=== PATIENT | female | born 1985 | race Caucasian/White ===

== ENCOUNTER 2017-01-29 09:57 | Emergency (ER) | payer MEDICAID, SELFPAY ==
[~2017-01-29] VITALS: Ht 175.3 cm; Wt 61.2 kg
[~2017-01-29 09:57] MED LIST: FAMCICLOVIR500 MG ORAL; NORCO1 E1 ORAL; ZOFRAN ODT8 MG ORAL; gabapentin
[2017-01-29] MEDS ORDERED: NKM (10:22)
[2017-01-29 10:46] LABS: APPEARANCE,URINE SLIGHTLY CLOUDY; KETONES,URINE NEGATIVE (NEGATIVE); LEUKOCYTE ESTERASE ,URINE 1+ (NEGATIVE); NITRITE,URINE NEGATIVE (NEGATIVE); PH,URINE 6.5 (4.5-8.0); PROTEIN,URINE NEGATIVE (NEGATIVE); UROBILINOGEN,URINE NORMAL MG/DL (0.0-1.0)
[2017-01-29 10:53] LABS: BACTERIA,URINE FEW /HPF; SQUAMOUS EPITHELIAL CELL,UR MODERATE /LPF (NONE/OCC)
--- NOTE | 2017-01-29 10:58 | Emergency Room Report ---
History of Present Illness General Chief Complaint: Abdominal Pain Source: Patient Present Illness HPI 31YOF walk-in with acute epigastric "burning" pain "radiating up my throat". No nausea/vomiting, diarrhea. States D&C was done 3 weeks ago. States "uterus was punctured." Was DCed with 3 day course of Abx, doesnt remember name. Denies urinary complaints, fever/chills. Remote past surgical history of ovarian cyst removal. History of gastritis "but this feels differently." No history of gallstones. Allergies: Coded Allergies: No Known Allergies (Unverified , 01/29/17) Patient History Past Medical History: none Past Surgical History: other - ovarian cyst surgery?, D&C Pertinent Family History: none Last Menstrual Period: 10/01/16 ( 3 weeks ago) Now: No Immunizations: UTD Reviewed Nursing Documentation: PMH: Agreed, PSxH: Agreed Nursing Documentation-PMH Past Medical History: No Stated History Review of Systems All Other Systems: negative except mentioned in HPI Physical Exam Vital Signs Date Time Temp Pulse Resp B/P Pulse Ox O2 Delivery O2 Flow Rate FiO2 01/29/17 10:17 98.4 93 18 141/91 98 Room Air Sp02 EP Interpretation: reviewed, normal General Appearance: normal inspection, well appearing, no apparent distress, alert, GCS 15, non-toxic Head: normocephalic, atraumatic ENT: normal ENT inspection, hearing grossly normal, normal voice Neck: normal inspection, full range of motion, supple, no bony tend Respiratory: normal inspection, lungs clear, normal breath sounds, no rhonchi, no respiratory distress, no retraction, no accessory muscle use, no wheezing, speaking full sentences Cardiovascular #1: regular rate, rhythm, no edema Gastrointestinal: normal inspection, normal bowel sounds, soft, no guarding, no hernia, other - ++TTP RUQ and epigastrium. Midline vertical umbilical scar Genitourinary: no CVA tenderness Musculoskeletal: normal inspection, back normal, normal range of motion, Mitch' s Sign negative Neurologic: normal inspection, alert, oriented x3, responsive, proctologist III-XII nml as tested, motor strength/tone normal, speech normal Psychiatric: normal inspection, judgement/insight normal, mood/affect normal Skin: normal inspection, normal color, no rash Lymphatic: normal inspection Medical Decision Making Diagnostic Impression: Primary Impression: Gastritis Qualified Codes: K29.50 - Unspecified chronic gastritis without bleeding Additional Impression: Pyelonephritis ER Course Right sided abd/flank pain - UA c/w UTI. Possibly Keflex resistant UTI post D&C - Clinical pyelo - Afebrile, no leuks on labs - No LFT abnormality to be c/w cholecystitis. Lipase normal - IV Rocephin given in ED - Rx Macrobid Epigastric pain - Likely chronic gastritis - No NSAID abuse or ETOH abuse - Improved with IV Pepcid - Rx pepcid Chest X-Ray Diagnostic Results EP Interpretation: Yes Findings: no consolidation, no effusion, no pneumothorax, no acute cardiopulmonary disease, other - no free air Number of Views: 1 Last Vital Signs Date Time Temp Pulse Resp B/P Pulse Ox O2 Delivery O2 Flow Rate FiO2 01/29/17 10:17 98.4 93 18 141/91 98 Room Air Status: improved Disposition: HOME, SELF-CARE Scripts Famotidine (PEPCID) 20 Mg Tablet 20 MG ORAL BID for 7 Days, #14 TAB 0 Refills Prov: JORGE FUENTES M.D. 01/29/17 Nitrofurantoin Monohyd/M-Cryst* (MACROBID 100 MG*) 100 Mg Capsule 100 MG ORAL EVERY 12 HOURS for 7 Days, #14 CAP Prov: JORGE FUENTES M.D. 01/29/17 JORGE FUENTES M.D. Jan 29, 2017 10:58
[2017-01-29] MEDS ORDERED: Famotidine 20 MG/ 2ML VIAL IVP ONE (11:00)
[2017-01-29] MEDS ORDERED: Lidocaine 2% Visc 15ml soln ORAL ONE (11:00)
[2017-01-29] MEDS ORDERED: Mylanta II UD 30ml ORAL ONE (11:00)
[2017-01-29] MEDS ORDERED: cefTRIAXone 1 GM in NS 55 ML IVPB ONE (11:30)
[2017-01-29 11:52] LABS: BASOPHILS % (AUTO) 0.6 % (0.0-2.0); EOSINOPHILS % (AUTO) 2.2 % (0.0-3.0); LYMPHOCYTES % (AUTO) 9.7 % (20.0-45.0); MEAN CORPUSCULAR HEMOGLOBIN 30.8 PG (27.0-31.0); MEAN CORPUSCULAR HGB CONC 33.9 G/DL (32.0-36.0); MEAN CORPUSCULAR VOLUME 91 FL (80-99); MEAN PLATELET VOLUME 6.9 FL (6.5-10.1); MONOCYTES % (AUTO) 6.9 % (1.0-10.0); NEUTROPHILS % (AUTO) 80.6 % (45.0-75.0); PLATELET COUNT 262 K/UL (150-450); RED BLOOD COUNT 4.07 M/UL (4.20-5.40); RED CELL DISTRIBUTION WIDTH 11.2 % (11.6-14.8); WHITE BLOOD COUNT 9.4 K/UL (4.8-10.8)
[2017-01-29 11:57] LABS: ALANINE AMINOTRANSFERASE 7 U/L (3-33); ALBUMIN/GLOBULIN RATIO 1.8 (1.0-2.7); ANION GAP 17 (5-15); ASPARTATE AMINO TRANSFERASE 11 U/L (5-40); CALCIUM 9.9 mg/dL (8.6-10.2); CARBON DIOXIDE 25 mEQ/L (20-30); CHLORIDE 96 mEQ/L (98-107); CREATININE 0.8 mg/dL (0.5-0.9); GLOMERULAR FILTRATION RATE > 60 mL/min (>60); HEMOLYSIS 6; LIPASE 14 U/L (< 60); POTASSIUM 4.1 mEQ/L (3.4-4.9); SODIUM 138 mEQ/L (135-145); TOTAL PROTEIN 7.4 g/dL (6.6-8.7); TROPONIN I < 0.30 ng/mL (<=0.30)
[2017-01-29] MEDS ORDERED: NITROFURANTOIN100 M2 ORAL (12:23)
[2017-01-29] MEDS ORDERED: PEPCID20 MG ORAL (12:23)
[2017-01-29] MEDS ORDERED: Ketorolac 30mg Inj IV ONE (12:30)
[2017-01-29 12:50] VITALS: BP 124/85
[2017-01-29 13:00] VITALS: BP 124/85
--- NOTE | 2017-01-30 08:29 | Diagnostic Imaging Report ---
Indication: Chest Pain Comparison: None A single view chest radiograph was obtained. Findings: Cardiomediastinal appearance is within normal limits for age. Pulmonary vascularity is appropriate. The diaphragmatic contour is smooth and costophrenic angles are sharp. No pleural effusions are identified. The bones are unremarkable. Impression: No acute findings
== END 2017-01-29 13:00 | disposition home or self-care (01) ==
LOC: EMR 10:17
DX: K29.50 Unspecified chronic gastritis without bleeding (principal); N12 Tubulo-interstitial nephritis, not specified as acute or chronic
CPT/HCPCS: 36415; 71010; 80053; 81003; 81025; 83690; 84484; 85025; 87086; 93005; 96374; 96375; 99284; J0696; J1885; S0028